=== PATIENT | female | born 1955 | race Caucasian/White ===

== ENCOUNTER 2017-11-09 15:05 | Outpatient (CLI) | payer OTHER ==
--- NOTE | 2017-11-10 10:01 | XRAY Report ---
THREE VIEW RIGHT KNEE: 11/09/2017 CLINICAL INDICATION: Pain. FINDINGS: AP, lateral, sunrise views of the right knee demonstrate mild osteoarthritis, with small marginal osteophytes. There is no evidence of fracture or dislocation. No effusion is present. IMPRESSION: MILD OSTEOARTHRITIS. TD: 11/10/2017 10:00
== END 2017-11-09 15:06 | disposition home or self-care (01) ==
LOC: DI 15:05
PROVIDERS: ATTEND Physician Assistant
DX: M17.11 Unilateral primary osteoarthritis, right knee (principal); M25.561 Pain in right knee

== ENCOUNTER 2019-10-03 10:42 | Outpatient (CLI) | payer OTHER | END 2019-10-03 10:43 | disposition home or self-care (01) | LOC: COV 10:42 | PROVIDERS: ATTEND Family Medicine | DX: R05 Cough (principal); R50.9 Fever, unspecified | CPT/HCPCS: 81599 ==

== ENCOUNTER 2020-03-19 13:37 | Outpatient (CLI) | payer OTHER ==
[2020-03-19 14:06] LABS: ALBUMIN 4.2 g/dL (3.2-5.5); ALBUMIN/GLOBULIN RATIO 1.6 (1.0-2.2); BILIRUBIN,TOTAL 0.6 mg/dL (0.2-1.0); CALCIUM 9.4 mg/dL (8.5-10.3); CRP - C-REACTIVE PROTEIN 1.2 mg/dL (0-1.0); TOTAL PROTEIN 6.9 g/dL (6.7-8.2)
[2020-03-19 19:30] LABS: RHEUMATOID FACTOR NEGATIVE (Negative)
[2020-03-21 09:21] LABS: ANA SCREEN NEGATIVE (NEGATIVE)
== END 2020-03-19 13:38 | disposition home or self-care (01) ==
LOC: LAB 13:37
PROVIDERS: ATTEND Nurse Practitioner Family
DX: M79.641 Pain in right hand (principal)
CPT/HCPCS: 36415; 80053; 85651; 86038; 86140; 86200; 86430

== ENCOUNTER 2020-03-19 13:49 | Outpatient (CLI) | payer OTHER ==
--- NOTE | 2020-03-19 16:22 | XRAY Report ---
PROCEDURE: Hand 3 View BILAT INDICATIONS: PAIN IN RT HAND TECHNIQUE: 3 views of the hand(s) acquired. COMPARISON: None FINDINGS: Bones: No fractures or dislocations. No suspicious bony lesions. There is moderate bilateral first CMC degenerative narrowing, slightly more prominent on the left. Bilateral scattered areas of IP deg enerative narrowing are present bilaterally. Very minimal areas of periarticular lucency are noted bi laterally particularly at the DIP joints. Prominent articular osteophyte is noted at the left fourth PIP joint. Radiocarpal narrowing is present. Soft tissues: No suspicious soft tissue calcifications. IMPRESSION: Arthritic changes as above. Areas of periarticular lucency are present. Both these could be represent ative of osteoarthritis, inflammatory arthritides should be considered. Reviewed by: Corina Billings MD on 03/19/2020 4:21 PM PDT Approved by: Corina Billings MD on 03/19/2020 4:21 PM PDT Station ID: [id number]
== END 2020-03-19 13:50 | disposition home or self-care (01) ==
LOC: DI 13:49
PROVIDERS: ATTEND Nurse Practitioner Family
DX: M19.041 Primary osteoarthritis, right hand (principal); M79.641 Pain in right hand
CPT/HCPCS: 36415; 80053; 85651; 86038; 86140; 86200; 86430

== ENCOUNTER 2020-04-19 07:57 | Outpatient (CLI) | payer OTHER ==
[2020-04-19 15:33] LABS: CHOL/HDL RATIO 2.7 (<4.4); CHOLESTEROL 152 mg/dL; GLUCOSE,FASTING 98 mg/dL (70-100); HDL CHOLESTEROL 57 mg/dL; LDL CHOLESTEROL,CALCULATED 51 mg/dL; LDL/HDL RATIO 0.9 (<4.4); VLDL CHOLESTEROL 44 mg/dL
== END 2020-04-19 07:58 | disposition home or self-care (01) ==
LOC: LAB.S 07:57
PROVIDERS: ATTEND Pharmacist
DX: I25.10 Atherosclerotic heart disease of native coronary artery without angina pectoris (principal); E78.00 Pure hypercholesterolemia, unspecified
CPT/HCPCS: 36415; 80061; 82947; 83721

== ENCOUNTER 2021-04-29 10:08 | Outpatient (CLI) | payer OTHER ==
[2021-04-29 15:39] LABS: CHOL/HDL RATIO 3.1 (<4.4); CHOLESTEROL 191 mg/dL; GLUCOSE,FASTING 94 mg/dL (70-100); HDL CHOLESTEROL 61 mg/dL; LDL CHOLESTEROL,CALCULATED 69 mg/dL; LDL/HDL RATIO 1.1 (<4.4); TRIGLYCERIDES 304 mg/dL; VLDL CHOLESTEROL 61 mg/dL
== END 2021-04-29 10:09 | disposition home or self-care (01) ==
LOC: LAB.S 10:08
PROVIDERS: ATTEND Pharmacist
DX: E78.00 Pure hypercholesterolemia, unspecified (principal)
CPT/HCPCS: 36415; 80061; 82947; 83721

== ENCOUNTER 2021-07-25 08:10 | Outpatient (CLI) | payer MEDICARE, OTHER ==
--- NOTE | 2021-07-25 12:33 | DEXA Report ---
PROCEDURE: Dexa Spine and/or Hip INDICATIONS: POST MENOPAUSAL TECHNIQUE: Dual energy x-ray absorptiometry (DXA) was performed on a [employer] System. Regions measur ed are the AP Spine, femoral neck, and if needed forearm. COMPARISON: None. FINDINGS: Lumbar Spine: Bone Mineral Density 1.368 g/cm/cm,T score 1.6, normal Left Hip: Bone Mineral Density 0.991 g/cm/cm,T score -0.1, normal Left Femoral Neck: Bone Mineral Density 0.937 g/cm/cm, T score -0.7, nornal (T score greater or equal to -1.0: NORMAL) (T score from -1.1 to -2.4: OSTEOPENIA) (T score less than or equal to -2.5 to: OSTEOPOROSIS) Impression: Normal bone mineral density. Patients with diagnosis of osteoporosis or osteopenia should have regular bone mineral density assess ment. For those eligible for Medicare, routine testing is allowed once every 2 years. Testing frequ ency can be increased for patients who have rapidly progressing disease or for those who are receivin g medical therapy to restore bone mass. Reviewed by: Corina Billings MD on 07/25/2021 12:31 PM PST Approved by: Corina Billings MD on 07/25/2021 12:31 PM PST Station ID: [id number]
== END 2021-07-25 08:11 | disposition home or self-care (01) ==
LOC: DI 08:10
PROVIDERS: ATTEND Nurse Practitioner Family
DX: Z78.0 Asymptomatic menopausal state (principal)

== ENCOUNTER 2021-08-21 08:03 | Outpatient (CLI) | payer MEDICARE, OTHER ==
[2021-08-21 15:43] LABS: CHOL/HDL RATIO 2.9 (<4.4); CHOLESTEROL 172 mg/dL; GLUCOSE 98 mg/dL (70-100); HDL CHOLESTEROL 60 mg/dL; LDL CHOLESTEROL,CALCULATED 53 mg/dL; LDL/HDL RATIO 0.9 (<4.4); TRIGLYCERIDES 294 mg/dL; VLDL CHOLESTEROL 59 mg/dL
== END 2021-08-21 08:04 | disposition home or self-care (01) ==
LOC: LAB.S 08:03
PROVIDERS: ATTEND Pharmacist
DX: E78.00 Pure hypercholesterolemia, unspecified (principal); Z79.899 Other long term (current) drug therapy
CPT/HCPCS: 36415; 80061; 82947; 83721

== ENCOUNTER 2022-10-15 08:44 | Outpatient (CLI) | payer MEDICARE, BC ==
[2022-10-15 14:53] LABS: CHOL/HDL RATIO 2.7 (<4.4); CHOLESTEROL 144 mg/dL; GLUCOSE,FASTING 95 mg/dL (70-100); HDL CHOLESTEROL 54 mg/dL; LDL CHOLESTEROL,CALCULATED 19 mg/dL; LDL/HDL RATIO 0.4 (<4.4); TRIGLYCERIDES 354 mg/dL; VLDL CHOLESTEROL 71 mg/dL
== END 2022-10-15 08:45 | disposition home or self-care (01) ==
LOC: LAB.S 08:44
PROVIDERS: ATTEND Pharmacist
DX: E78.00 Pure hypercholesterolemia, unspecified (principal); I25.10 Atherosclerotic heart disease of native coronary artery without angina pectoris
CPT/HCPCS: 36415; 80061; 82947; 83721

== ENCOUNTER 2023-02-18 09:35 | Outpatient (CLI) | payer MEDICARE, BC ==
[2023-02-18 15:46] LABS: CHOL/HDL RATIO 3.6 (<4.4); CHOLESTEROL 205 mg/dL; HDL CHOLESTEROL 57 mg/dL; LDL CHOLESTEROL,CALCULATED 103 mg/dL; LDL/HDL RATIO 1.8 (<4.4); TRIGLYCERIDES 227 mg/dL (48-352); VLDL CHOLESTEROL 45 mg/dL
== END 2023-02-18 09:36 | disposition home or self-care (01) ==
LOC: LAB.S 09:35
PROVIDERS: ATTEND Internal Medicine Cardiovascular Disease
DX: E78.00 Pure hypercholesterolemia, unspecified (principal); I25.10 Atherosclerotic heart disease of native coronary artery without angina pectoris; Z79.899 Other long term (current) drug therapy
CPT/HCPCS: 36415; 80061; 83721

== ENCOUNTER 2023-05-26 08:53 | Outpatient (CLI) | payer MEDICARE, BC ==
[2023-05-26 15:27] LABS: CHOL/HDL RATIO 2.5 (<4.4); CHOLESTEROL 150 mg/dL; HDL CHOLESTEROL 61 mg/dL; LDL CHOLESTEROL,CALCULATED 35 mg/dL; LDL/HDL RATIO 0.6 (<4.4); TRIGLYCERIDES 270 mg/dL (48-352); VLDL CHOLESTEROL 54 mg/dL
== END 2023-05-26 08:54 | disposition home or self-care (01) ==
LOC: LAB.S 08:53
PROVIDERS: ATTEND Pharmacist
DX: E78.00 Pure hypercholesterolemia, unspecified (principal); I25.10 Atherosclerotic heart disease of native coronary artery without angina pectoris; Z79.899 Other long term (current) drug therapy
CPT/HCPCS: 36415; 80061; 83721

== ENCOUNTER 2023-11-10 08:10 | Outpatient (CLI) | payer MEDICARE, BC ==
[2023-11-10 16:19] LABS: CHOL/HDL RATIO 2.3 (<4.4); CHOLESTEROL 150 mg/dL; HDL CHOLESTEROL 64 mg/dL; LDL CHOLESTEROL,CALCULATED 41 mg/dL; LDL/HDL RATIO 0.6 (<4.4); TRIGLYCERIDES 223 mg/dL (48-352); VLDL CHOLESTEROL 45 mg/dL
== END 2023-11-10 08:11 | disposition home or self-care (01) ==
LOC: LAB.S 08:10
PROVIDERS: ATTEND Pharmacist
DX: E78.00 Pure hypercholesterolemia, unspecified (principal); I25.10 Atherosclerotic heart disease of native coronary artery without angina pectoris
CPT/HCPCS: 36415; 80061; 83721

== ENCOUNTER 2024-02-08 09:50 | Outpatient (CLI) | payer MEDICARE, BC ==
--- NOTE | 2024-02-08 13:00 | DEXA Report ---
PROCEDURE: Dexa Spine and/or Hip INDICATIONS: POST MENOPAUSAL TECHNIQUE: Dual energy x-ray absorptiometry (DXA) was performed on a [employer] System. Regions measur ed are the AP Spine, femoral neck, and if needed forearm. COMPARISON: 07/25/2021 FINDINGS: Lumbar Spine: Bone Mineral Density: 1.405 g/cm/cm,T score: 1.9. Since the most recent prior study, there has been a statistically significant increase in bone mineral density by XXX percent. Left Femoral Neck: Bone Mineral Density: 0.874 g/cm/cm, T score: -1.2. Left Hip: Bone Mineral Density: 0.981 g/cm/cm,T score: -0.2. There has been no statistically significant change in bone mineral density since the prior study. (T score greater or equal to -1.0: NORMAL) (T score from -1.1 to -2.4: OSTEOPENIA) (T score less than or equal to -2.5 to: OSTEOPOROSIS) Impression: By WHO criteria, this patient has low bone density (osteopenia). Interval statistical increase in bone mineral density of the lumbar spine. No statistical interval ch kevin in bone mineral density of the hip. Patients with diagnosis of osteoporosis or osteopenia should have regular bone mineral density assess ment. For those eligible for Medicare, routine testing is allowed once every 2 years. Testing frequ ency can be increased for patients who have rapidly progressing disease or for those who are receivin g medical therapy to restore bone mass. Reviewed by: Michoacano Girard MD on 02/08/2024 12:59 PM PDT Approved by: Michoacano Girard MD on 02/08/2024 12:59 PM PDT Station ID: [id number]
== END 2024-02-08 09:51 | disposition home or self-care (01) ==
LOC: DI 09:50
PROVIDERS: ATTEND Nurse Practitioner Acute Care
DX: Z78.0 Asymptomatic menopausal state (principal); M85.88 Other specified disorders of bone density and structure, other site

== ENCOUNTER 2024-02-26 13:49 | Outpatient (CLI) | payer MEDICARE, BC ==
[2024-02-26 14:12] LABS: POTASSIUM 3.4 mmol/L (3.5-4.5)
[2024-02-26 14:28] LABS: THYROID STIMULATING HORMONE 2.1 uIU/mL (0.34-5.60)
== END 2024-02-26 13:50 | disposition home or self-care (01) ==
LOC: LAB 13:49
PROVIDERS: ATTEND Nurse Practitioner Acute Care
DX: Z13.29 Encounter for screening for other suspected endocrine disorder (principal); E87.6 Hypokalemia
CPT/HCPCS: 36415; 84132; 84443